=== PATIENT | male | born 1980 | race Caucasian/White ===

== ENCOUNTER 2022-11-10 22:50 | Emergency (ER) | payer SELFPAY ==
[2022-11-10] MEDS ORDERED: Sodium Chloride 0.9% 1,000 ML IV ONE (23:27)
[2022-11-10] MEDS ORDERED: Ondansetron 4 MG/2 ML SDV IVPUSH ONE (23:27)
[2022-11-10] MEDS ORDERED: Sodium Chloride 0.9% 2.5 ML Syringe FLUSH PRN (23:27)
[2022-11-10] MEDS ORDERED: Sodium Chloride 0.9% 10 ML Syringe FLUSH PRN (23:27)
[2022-11-10 23:47] LABS: CARBON DIOXIDE,CO2 28.6 mmol/L (21.0-32.0); POTASSIUM,K 4.1 mmol/L (3.5-5.1)
[2022-11-11] MEDS ORDERED: fentaNYL 50 MCG/ML SDV IVPUSH ONE ×2 (01:15→06:16)
[2022-11-11] MEDS ORDERED: Ketorolac 30 MG/ML SDV IVPUSH ONE ×2 (01:15→06:17)
[2022-11-11 03:26] LABS: CORONAVIRUS COVID-19 NAA NEGATIVE (NEGATIVE); INFLUENZA A NAA NEGATIVE (NEGATIVE); INFLUENZA B NAA NEGATIVE (NEGATIVE)
[2022-11-11] MEDS ORDERED: Ondansetron 4 MG/2 ML SDV IVPUSH ONE (06:17)
[2022-11-11 06:43] LABS: CARBON DIOXIDE,CO2 27.8 mmol/L (21.0-32.0); POTASSIUM,K 5.1 mmol/L (3.5-5.1)
[2022-11-11] MEDS ORDERED: Sodium Chloride 0.9% 1,000 ML IV SCH (07:30)
== END 2022-11-11 13:00 ==
LOC: MW.ED 22:50
DX: K83.8 Other specified diseases of biliary tract (principal); R74.01 Elevation of levels of liver transaminase levels; R17 Unspecified jaundice; Z20.822 Contact with and (suspected) exposure to COVID-19
CPT/HCPCS: 0240U; 36415; 74176; 76705; 80053; 83690; 85025; 96361; 96374; 96375; 96376; 99285; J1885; J2405; J3010; J3490; J7030